=== PATIENT | female | born 1935 | race Caucasian/White ===

== ENCOUNTER 2017-10-10 11:32 | Emergency (ER) | payer MEDICARE ==
[2017-10-10 12:43] LABS: #Basophils 0.1 thou/uL (0.0-0.2); #Eosinphils 0.2 thou/uL (0.0-0.7); #Monocytes 0.5 thou/uL (0.11-0.59); %Basophils 1.8 % (0.0-1.0); %Eosinophils 2.9 % (0.0-10.0); %Lymphocytes 25.5 % (21.0-51.0); %Monocytes 5.8 % (0.0-10.0); Hematocrit 35.6 % (36.0-47.0); Mean Platelet Volume 8.5 fL (7.4-10.4); Red Blood Cell (RBC) Count 3.86 mill/uL (4.20-5.40); White Blood Cell (WBC) Count 7.7 thou/uL (4.8-10.8)
[2017-10-10 12:50] LABS: Anion Gap 12 mmol/L (10-20); BUN (Urea Nitrogen) 20 mg/dL (9.8-20.1); Calc. Creatinine Clearance 0 mL/min (70-130); Calcium 9.5 mg/dL (7.8-10.44); Carbon Dioxide 23 mmol/L (23-31); Chloride 108 mmol/L (98-107); Estimated GFR-MDRD 46
[2017-10-10 12:56] LABS: Troponin I Less than 0.010 ng/mL (< 0.028)
--- NOTE | 2017-10-10 13:09 | RAD ---
CHEST TWO VIEW: HISTORY: Cough. COMPARISON: Chest two view from 2014. FINDINGS: The lungs are clear. No pneumothorax or effusion. The cardiac silhouette and mediastinal contour ar e within normal limits. Moderate degenerative change of both acromioclavicular joints and glenohumer al joints. IMPRESSION: No acute intrathoracic abnormality. No significant change. POS: [facility]
== END 2017-10-10 13:18 | disposition home or self-care (01) ==
LOC: SCSER 11:32
DX: J20.9 Acute bronchitis, unspecified (principal); R19.7 Diarrhea, unspecified; F32.9 Major depressive disorder, single episode, unspecified; E78.5 Hyperlipidemia, unspecified; I10 Essential (primary) hypertension
CPT/HCPCS: 36415; 71020; 80048; 82553; 84484; 85025; 93005

== ENCOUNTER 2019-02-26 04:27 | Emergency (ER) | payer MEDICARE ==
[2019-02-26] MEDS ORDERED: KETAMINE 100 MG/ML (5ML VIAL) ONE (05:12)
--- NOTE | 2019-02-26 07:45 | RAD ---
FXR Wrist 3 Lt View STANDARD History: [Trauma] Comparison: None. Findings: Intra-articular fracture distal radius with dorsal displacement and angulation. There is al so transverse widening of the distal radial articular surface. There is a fracture through the midpor tion of the ulnar styloid. Scaphoid fracture is not appreciated. Impression: Intra-articular distal radius fracture with dorsal displacement and angulation as well as a mid ulnar styloid fracture.
--- NOTE | 2019-02-26 07:45 | RAD ---
FXR Forearm Lt 2 View STANDARD History: [Fall. Trauma.] Comparison: None. Findings: Intra-articular fracture distal radius with dorsal displacement and angulation. Ulnar stylo id fracture. Proximal forearm is intact. Impression: Wrist trauma. Proximal forearm is intact.
--- NOTE | 2019-02-26 07:46 | RAD ---
FXR Hip Rt 2-3 View History: [Trauma. Fall.] Comparison: None. Findings: No acute fracture or malalignment. Small acetabular osteophyte formation. Enthesopathic karen nges of the hamstring tendon. Impression: No acute fracture or malalignment.
--- NOTE | 2019-02-26 07:52 | RAD ---
FXR Wrist Lt 2 View History: [Post reduction] Comparison: Radiograph same day Findings: Interval improved alignment of the intra-articular distal radius fracture continues to be d orsal displacement. The styloid fracture is similar. Impression: Slight interval improvement of the intra-articular distal radius fracture.
--- NOTE | 2019-02-26 08:53 | RAD ---
LEFT WRIST 2 VIEWS: Date: 02/26/19 COMPARISON: Film done earlier today. FINDINGS: The comminuted, impacted, and dorsally angulated distal radial fracture is again demonstrated. There does not appear to be a significant degree of change in the appearance of the fracture. Associated ul eren styloid fracture is noted. IMPRESSION: Fairly stable appearance to the distal radial fracture. POS: [facility]
== END 2019-02-26 08:02 | disposition home or self-care (01) ==
LOC: SCSER 04:27
DX: S52.532A Colles' fracture of left radius, initial encounter for closed fracture (principal); S52.615A Nondisplaced fracture of left ulna styloid process, initial encounter for closed fracture; S52.572A Other intraarticular fracture of lower end of left radius, initial encounter for closed fracture; E78.5 Hyperlipidemia, unspecified; E03.9 Hypothyroidism, unspecified; F32.9 Major depressive disorder, single episode, unspecified; I10 Essential (primary) hypertension; W19.XXXA Unspecified fall, initial encounter
CPT/HCPCS: 25605; 96374; 96376; 99152; 99153; J2270

== ENCOUNTER 2019-02-27 08:29 | Day surgery (SDC) | payer MEDICARE ==
[2019-02-26 18:01] VITALS: BMI 30.6
[2019-02-27 09:14] LABS: Anion Gap 12 mmol/L (10-20); BUN (Urea Nitrogen) 13 mg/dL (9.8-20.1); Calc. Creatinine Clearance 49 mL/min (70-130); Carbon Dioxide 25 mmol/L (23-31); Chloride 103 mmol/L (98-107); Estimated GFR-MDRD 47; Potassium 3.9 mmol/L (3.5-5.1); Sodium 136 mmol/L (136-145)
[2019-02-27 09:15] LABS: Calcium 9.2 mg/dL (7.8-10.44); Glucose 85 mg/dL (83-110)
[2019-02-27] MEDS ORDERED: Fentanyl 100 MCG/2 ML VIAL ONE (09:16)
[2019-02-27] MEDS ORDERED: Midazolam HCl 2 mg/2 ml Vial ONE (09:16)
[2019-02-27] MEDS ORDERED: Ondansetron HCl/PF 4 MG/2 ML Vial IVP PRN (10:59)
[2019-02-27] MEDS ORDERED: Promethazine HCl 25 MG/ML VIAL IM PRN (10:59)
[2019-02-27] MEDS ORDERED: Ketorolac Tromethamine 30 MG/ML VIAL IVP PRN (10:59)
[2019-02-27] MEDS ORDERED: Promethazine HCl 25 MG/ML VIAL SLOW IVP PRN (10:59)
[2019-02-27] MEDS ORDERED: Meperidine HCl/PF 25 MG/ML VIAL SLOW IVP PRN (10:59)
[2019-02-27] MEDS ORDERED: Promethazine HCl 25 MG/ML VIAL ONE (11:46)
[2019-02-27] MEDS ORDERED: Bupivacaine HCl 0.5%/Epinephrine 1:200,000/PF 30 ml Vial ONE (12:03)
[2019-02-27] MEDS ORDERED: PROPOFOL 200 MG/20 ML VIAL ONE (12:19)
[2019-02-27] MEDS ORDERED: Lidocaine 1% PF 5 ML VIAL ONE (12:19)
[2019-02-27] MEDS ORDERED: Ondansetron PF 4 MG/2 ML Vial ONE (12:19)
[2019-02-27] MEDS ORDERED: Dexamethasone 20 MG/5 ML VIAL ONE (12:19)
--- NOTE | 2019-02-27 13:01 | OP ---
DATE OF PROCEDURE: 02/27/2019 OPERATION: Open reduction and internal fixation of left distal radius fracture. PREOPERATIVE DIAGNOSIS: Left displaced distal radius fracture. POSTOPERATIVE DIAGNOSIS: Left displaced distal radius fracture. COMPLICATIONS: None. ESTIMATED BLOOD LOSS: Minimal. DIMENSIONAL ENGINEER: Darell Cruz PA-C IMPLANT: Synthes 3-hole volar distal radius plate with locking and nonlocking screws. INDICATIONS: Ms. Fraire is an 83-year-old female, who fell. She fractured her left distal radius. She was indicated for open reduction and internal fixation to restore an anatomic alignment and promote healing. Risks have been reviewed in detail. She elected to proceed with the operation. DESCRIPTION OF PROCEDURE: Ms. Fraire was identified in the preoperative holding area. Her correct extremity was marked. She was carried to the operating room. She was positioned supine. General anesthesia was induced. A multidisciplinary time-out was performed. The left upper extremity was prepped and draped in the sterile fashion. We began the procedure with volar approach to the wrist. We dissected down through the subcutaneous tissues to the FCR tendon. Tendon sheath was opened. We retracted the tendon sheath and more deeply down to the bony level. We exposed the underlying fracture after elevating the pronator quadratus. At this point, we reduced the fracture using traction and reduction maneuver with a [place] elevator. We then applied our [employer]ynthes volar distal radius plate. A screw was placed proximally. We checked the position of the plate and alignment. We were happy with this. We proceeded to fill all screw holes. We then took final x-ray images again in orthogonal planes. We thoroughly irrigated with copious lavage. At this point, we closed in layers. A sterile dressing and splint were placed. The patient was taken to the recovery room in good condition without complication. Job ID: [id number]
--- NOTE | 2019-02-27 14:54 | RAD ---
Exam: Left wrist 2 views: HISTORY: Status post ORIF COMPARISON: 02/26/2019 Findings/impression: Metal plate and screws are placed stabilizing a comminuted distal radial fracture with marked improve ment in position and alignment. Minimally displaced ulnar styloid process fracture.
--- NOTE | 2019-02-27 22:32 | EKG ---
Test Reason : PREOP Blood Pressure : / mmHG Vent. Rate : 065 BPM Atrial Rate : 065 BPM P-R Int : 174 ms QRS Dur : 084 ms QT Int : 444 ms P-R-T Axes : 066 035 053 degrees QTc Int : 461 ms Normal sinus rhythm Normal ECG When compared with ECG of 10-OCT-2017 12:01, No significant change was found Confirmed by Bailey CABALLERO ([id number]) on 02/27/2019 10:32:18 PM Referred By: [email or web address] Confirmed By:Bailey CABALLERO
== END 2019-02-27 12:55 | disposition home or self-care (01) ==
LOC: SDC 08:29
PROVIDERS: ATTEND Orthopaedic Surgery
PROC: 0PSJ04Z Reposition Left Radius with Internal Fixation Device, Open Approach (ICD-10-PCS; principal; 2019-02-27)
DX: S52.572A Other intraarticular fracture of lower end of left radius, initial encounter for closed fracture (principal); X58.XXXA Exposure to other specified factors, initial encounter; Z79.899 Other long term (current) drug therapy
CPT/HCPCS: 36415; 76000; 80048; 93005; 93010; C1713; J2250; J2550; J3010

== ENCOUNTER 2023-03-24 05:57 | Day surgery (SDC) | payer MEDICARE, BC ==
[2023-03-23 15:13] VITALS: BMI 28.8
[2023-03-24 06:32] LABS: #Eosinphils 0.2 thou/uL (0.0-0.7); #Monocytes 0.4 thou/uL (0.11-0.59); #Neutrophils 4.8 thou/uL (1.40-6.50); %Basophils 0.6 % (0.0-1.0); %Lymphocytes 27.2 % (21.0-51.0); %Monocytes 5.2 % (0.0-10.0); Hemoglobin 11.5 g/dL (12.0-16.0); Mean Corpuscular HGB CONC 32.1 g/dL (32.0-36.0); Mean Corpuscular Hemoglobin 29.4 pg (27.0-31.0); Mean Corpuscular Volume 91.5 fl (78.0-98.0); Mean Platelet Volume 7.7 fL (7.4-10.4); Platelet Count 332 10x3/uL (130-400); RBC Distribution Width 12.9 % (11.5-14.5); Red Blood Cell (RBC) Count 3.91 mill/uL (4.20-5.40); White Blood Cell (WBC) Count 7.5 10x3/uL (4.8-10.8)
[2023-03-24 06:43] LABS: INR-International Normal Ratio 0.9; Prothrombin Time 12.1 sec (12.0-14.7)
[2023-03-24 06:50] LABS: Anion Gap 14 mmol/L (10-20); BUN (Urea Nitrogen) 25 mg/dL (9.8-20.1); Calc. Creatinine Clearance 39 mL/min (70-130); Carbon Dioxide 21 mmol/L (23-31); Chloride 108 mmol/L (98-107); Potassium 4.2 mmol/L (3.5-5.1); Sodium 139 mmol/L (136-145)
[2023-03-24 06:51] LABS: Calcium 9.4 mg/dL (7.8-10.44); Estimated GFR 43; Glucose 97 mg/dL (83-110)
[2023-03-24] MEDS ORDERED: PROPOFOL 200 MG/20 ML VIAL ONE (07:33)
[2023-03-24] MEDS ORDERED: Lidocaine 1% PF 5 ML VIAL ONE (07:33)
== END 2023-03-24 08:45 | disposition home or self-care (01) ==
LOC: SDC 05:57
PROVIDERS: ATTEND Internal Medicine Cardiovascular Disease
PROC: B246ZZ4 Ultrasonography of Right and Left Heart, Transesophageal (ICD-10-PCS; principal; 2023-03-24)
DX: I48.0 Paroxysmal atrial fibrillation (principal); I11.9 Hypertensive heart disease without heart failure; I34.0 Nonrheumatic mitral (valve) insufficiency; E78.5 Hyperlipidemia, unspecified; M19.90 Unspecified osteoarthritis, unspecified site; E03.9 Hypothyroidism, unspecified; Z79.01 Long term (current) use of anticoagulants; Z79.02 Long term (current) use of antithrombotics/antiplatelets; Z79.82 Long term (current) use of aspirin; Z79.890 Hormone replacement therapy; Z79.899 Other long term (current) drug therapy; Z88.8 Allergy status to other drugs, medicaments and biological substances; Z95.818 Presence of other cardiac implants and grafts
CPT/HCPCS: 36415; 80048; 85025; 85610; 93312; J2704